=== PATIENT | female | born 1970 | race Caucasian/White ===

== ENCOUNTER 2016-12-30 12:21 | Observation (INO) ==
[2016-12-30] MEDS ORDERED: Naloxone 0.4 MG/ML INJ IVP PRN (13:21)
[2016-12-30] MEDS ORDERED: *HR* HYDROmorphone (PF) 1 MG/ML SYRINGE IVP PRN (13:26)
--- NOTE | 2016-12-30 13:35 | Event Note ---
Date of Encounter: 12/30/16 Time of Encounter: 13:33 Mrs. Padilla is a very pleasant 46 year old female who was seen and evaluated by Dr. Gill for symptomatic cholelithiasis. She was direct admitted to the hospital for supportive treatment and to perform laparoscopic cholecystectomy. See ECW history and physical. Copy placed in the patient folder at the nurses station as well as in the medical record to be scanned in.
[2016-12-30] MEDS: 0.9 % Sodium Chloride 1,000 ML IVC SCH (13:57)
[2016-12-30 13:59] LABS: Basophils % 0.4 %; Eosinophils # 0.2 K/mcL (0.0-0.6); Eosinophils % 1.6 %; Hematocrit 36.8 % (35.3-44.9); Hemoglobin 11.2 g/dL (11.5-15.4); Immature Granulocytes % 0.5 % (0-4); Lymphocytes # 1.4 K/mcL (0.6-4.6); Lymphocytes % 14.8 %; Mean Corpuscular HGB Conc 30.4 g/dL (31.6-35.5); Mean Corpuscular Hemoglobin 20.2 pg (28.0-33.3); Mean Corpuscular Volume 66.3 fL (83.0-100.0); Mean Platelet Volume 10.8 fL (9.4-12.4); Monocytes # 0.9 K/mcL (0.0-1.3); Monocytes % 9.2 %; Neutrophils # 6.9 K/mcL (1.6-8.9); Platelet Count 284 K/mcL (140-400); Red Blood Count 5.55 M/mcL (3.82-4.97); Red Cell Distribution Width 15.1 % (11.5-14.5); Segmented Neutrophils % 73.5 %
[2016-12-30 14:11] LABS: Alanine Aminotransferase 15 Units/L (0-55); Albumin 3.6 g/dL (3.5-5.0); Albumin/Globulin Ratio 0.9 (1.1-2.2); Alkaline Phosphatase 47 Units/L (38-126); Aspartate Amino Transferase 14 Units/L (5-34); BUN/Creatinine Ratio 21 (6-26); Bilirubin,Total 0.4 mg/dL (0.2-1.2); Blood Urea Nitrogen 19 mg/dL (7-20); Calcium 9.4 mg/dL (8.6-10.8); Carbon Dioxide 25 mEq/L (19-29); Chloride 105 mEq/L (98-109); Globulin 3.8 g/dL (2.4-3.5); Glucose 89 mg/dL (70-99); Osmolality,Calculated 288 (280-300); Potassium 4.2 mEq/L (3.5-4.5); Sodium 138 mEq/L (136-145); Total Protein 7.4 g/dL (6.0-8.3); eGFR For African Americans > 60 (> 60); eGFR For Non-African Americans > 60 (> 60)
[2016-12-30] MEDS: *HR* OxyCODONE/APAP 5/325 TABLET PO PRN (16:24)
[2016-12-30] MEDS: Ondansetron 4 MG/2 ML VIAL IVP PRN (21:05)
[2016-12-31] MEDS: *HR* OxyCODONE/APAP 5/325 TABLET PO PRN (04:44)
[2016-12-31] MEDS: 0.9 % Sodium Chloride 1,000 ML IVC SCH (06:13)
[2016-12-31] MEDS ORDERED: cefOXitin 2,000 MG in D5% in Water (Mini-Bag+) 100 ML IVPB ONE (08:00)
--- NOTE | 2016-12-31 12:05 | Discharge Summary ---
<Sandra Bradley - Last Filed: 12/31/16 12:03> Date of Encounter: 12/31/16 Time of Encounter: 12:03 - Discharge Diagnosis (1) Biliary colic Priority: Primary Status: Acute (2) Cholelithiasis Priority: Primary Status: Acute Qualifiers: Cholelithiasis location: gallbladder Cholecystitis presence: without cholecystitis Biliary obstruction: without biliary obstruction Qualified Code(s): K80.20 - Calculus of gallbladder without cholecystitis without obstruction - Discharge Medications Prescriptions: OxyCODONE/APAP 5/325 [Percocet 5/325 MG] 1 each PO Q6HR PRN #30 tablet PRN Reason: Moderate Pain Docusate [Colace] 100 mg PO BID #30 capsule Home Medications: Sulfamethoxazole/Trimeth DS [Bactrim Ds] 1 each PO BID #10 tablet 12/26/16 [Rx] Ondansetron HCl 4 mg PO Q3-4H PRN 12/30/16 [History] Docusate [Colace] 100 mg PO BID #30 capsule 12/31/16 [Rx] OxyCODONE/APAP 5/325 [Percocet 5/325 MG] 1 each PO Q6HR PRN #30 tablet 12/31/16 [Rx] Allergies/Adverse Reactions: Allergies No Known Allergies Allergy (Verified 12/22/16 13:07) General Surgery Exam Initial Vital Signs Temp Pulse Resp BP Pulse Ox 98.3 F 85 18 122/75 96 12/30/16 12:53 12/30/16 12:53 12/30/16 12:53 12/30/16 12:53 12/30/16 12:53 Date of admission: 12/30/16 13:21 Primary care physician: Mihir Bingham MD Discharging clinician: Roberto Bradley) Anticipated date of discharge: 12/31/16 - Patient Status Disposition: Home, Self-Care Condition: Good Functional capacity at discharge: independent ambulation Overall status at discharge: patient is progressing back to baseline - Discharge Instructions Follow Up With: Mihir Bingham MD [Primary Care Provider] - Sandra Bradley CNP [Advanced Practice Nurse] - 01/13/17 11:00 am (surgery follow-up) Additional Instructions: #1 may shower, no tub bath for 2 weeks #2 wash incisions with soap and water and pat dry daily #3 no lifting, pushing, pulling more than 15 pounds for the next 2 weeks #4 no driving until off narcotics for 24 hours and able to safely react in the car #5 may climb stairs - Diet and Activity Activity: other (See additional instructions above) - Hospital Course Hospital course: Ms. Padilla is a 46 year old female directed admitted to the hospital for symptomatic cholelithiasis and biliary colic. She was taken to the operating room for laparoscopic cholecystectomy with cholangiogram with Dr. Gill. We will begin discharge planning to home when the patient meets discharge criteria including tolerating liquids without nausea vomiting, vital signs are stable and afebrile, pain is well controlled, voiding and ambulating without difficulty. We will plan for outpatient follow-up in the next 10-14 days. - Time Spent with Patient Total time spent providing and/or coordinating discharge services: Less than 30 minutes Labs on day of discharge: Labs from last 24 hours 12/31/16 12/30/16 12/30/16 05:31 13:40 13:40 WBC RBC Hgb Hct MCV MCH MCHC RDW Plt Count MPV Immature Gran % Seg Neutrophils % Lymphocytes % Monocytes % Eosinophils % Basophils % Neutrophils # Lymphocytes # Monocytes # Eosinophils # Basophils # Sodium 138 Potassium 4.2 Chloride 105 Carbon Dioxide 25 BUN 19 Creatinine 0.90 Est GFR ( Amer) > 60 Est GFR (Non-Af Amer) > 60 BUN/Creatinine Ratio 21 Glucose 89 POC Glucose 103 H Calculated Osmolality 288 Calcium 9.4 Total Bilirubin 0.4 AST 14 ALT 15 Alkaline Phosphatase 47 Serum Total Protein 7.4 Albumin 3.6 Globulin 3.8 H Albumin/Globulin Ratio 0.9 L Serum , Qual Negative 12/30/16 13:40 WBC 9.4 RBC 5.55 H Hgb 11.2 L Hct 36.8 MCV 66.3 L MCH 20.2 L MCHC 30.4 L RDW 15.1 H Plt Count 284 MPV 10.8 Immature Gran % 0.5 Seg Neutrophils % 73.5 Lymphocytes % 14.8 Monocytes % 9.2 Eosinophils % 1.6 Basophils % 0.4 Neutrophils # 6.9 Lymphocytes # 1.4 Monocytes # 0.9 Eosinophils # 0.2 Basophils # 0.0 Sodium Potassium Chloride Carbon Dioxide BUN Creatinine Est GFR ( Amer) Est GFR (Non-Af Amer) BUN/Creatinine Ratio Glucose POC Glucose Calculated Osmolality Calcium Total Bilirubin AST ALT Alkaline Phosphatase Serum Total Protein Albumin Globulin Albumin/Globulin Ratio Serum , Qual - Attending Attestation I examined this patient and my medical decision-making was reviewed with the [employer]ER/PA/Advanced Practice Nurse/Resident Physician. I agree with the documented findings, disposition and treatment plan as described except to the extent set forth below. <Roberto Gill E - Last Filed: 12/31/16 13:44> Date of Encounter: 12/31/16 General Surgery Exam Initial Vital Signs Temp Pulse Resp BP Pulse Ox 98.3 F 85 18 122/75 96 12/30/16 12:53 12/30/16 12:53 12/30/16 12:53 12/30/16 12:53 12/30/16 12:53 Date of admission: 12/30/16 13:21 Primary care physician: Mihir Bingham MD - Hospital Course Hospital course: Ms. Padilla is a 46 year old female - Time Spent with Patient Total time spent providing and/or coordinating discharge services: Labs on day of discharge: Labs from last 24 hours 12/31/16 12/30/16 12/30/16 05:31 13:40 13:40 WBC RBC Hgb Hct MCV MCH MCHC RDW Plt Count MPV Immature Gran % Seg Neutrophils % Lymphocytes % Monocytes % Eosinophils % Basophils % Neutrophils # Lymphocytes # Monocytes # Eosinophils # Basophils # Sodium 138 Potassium 4.2 Chloride 105 Carbon Dioxide 25 BUN 19 Creatinine 0.90 Est GFR ( Amer) > 60 Est GFR (Non-Af Amer) > 60 BUN/Creatinine Ratio 21 Glucose 89 POC Glucose 103 H Calculated Osmolality 288 Calcium 9.4 Total Bilirubin 0.4 AST 14 ALT 15 Alkaline Phosphatase 47 Serum Total Protein 7.4 Albumin 3.6 Globulin 3.8 H Albumin/Globulin Ratio 0.9 L Serum , Qual Negative 12/30/16 13:40 WBC 9.4 RBC 5.55 H Hgb 11.2 L Hct 36.8 MCV 66.3 L MCH 20.2 L MCHC 30.4 L RDW 15.1 H Plt Count 284 MPV 10.8 Immature Gran % 0.5 Seg Neutrophils % 73.5 Lymphocytes % 14.8 Monocytes % 9.2 Eosinophils % 1.6 Basophils % 0.4 Neutrophils # 6.9 Lymphocytes # 1.4 Monocytes # 0.9 Eosinophils # 0.2 Basophils # 0.0 Sodium Potassium Chloride Carbon Dioxide BUN Creatinine Est GFR ( Amer) Est GFR (Non-Af Amer) BUN/Creatinine Ratio Glucose POC Glucose Calculated Osmolality Calcium Total Bilirubin AST ALT Alkaline Phosphatase Serum Total Protein Albumin Globulin Albumin/Globulin Ratio Serum , Qual - Impressions ITS Impressions Cholangiogram,Operative 12/31/16 00:00 IMPRESSION: Intraoperative images for cholecystectomy. No acute abnormality seen. D/ / Ga Trujillo MD / Ga Trujillo MD Interpreting Provider: Ga Trujillo MD
[2016-12-31] MEDS: Ondansetron 4 MG/2 ML VIAL IVP PRN (12:13)
--- NOTE | 2016-12-31 12:48 | Operative Note ---
Date of procedure: 12/31/16 Pre-op diagnosis: Biliary dyskinesia Post-op diagnosis: same Procedure: Laparoscopic cholecystectomy with cholangiogram Anesthesia: FRANCOIS Surgeon: Roberto Gill Estimated blood loss (cc): 5 Specimen: gb Condition: stable Disposition: same day Procedure in Detail: After informed consent this patient was taken the operating room placed supine position. After adequate sedation anesthesia the abdomen was prepped and draped. A proper timeout was performed. Two towel clamps are placed at the umbilicus and a Veres needle was inserted into the abdomen. A 5 mm incision was made at the umbilicus. A 12 mm incision was made in the subxiphoid region. Two 5 mm incisions were made in the right upper quadrant that were 4 finger breadths and 6 finger breadths below the costal margin. The gallbladder was identified, retracted anteriorly and cephalad, and the infundibulum was skeletonized. The cystic duct was easily identified and was dissected free. A ductotomy was created in the cystic duct. A taut catheter was placed within the cystic duct and clipped. A cholangiogram was performed. Contrast filled the cystic duct, common hepatic duct, hepatic radicles, and the distal common bile duct. There was flow of contrast into the duodenum. Once this was confirmed the clippers removed, the taut catheter was removed as well, and the cystic duct was clipped distally. The cystic duct was then transected with scissors. The gallbladder was resected off the liver surface. There was excellent hemostasis. The gallbladder was then retrieved through the 12 mm cannula site. At this point the abdomen was suctioned dry and the pneumoperitoneum was then evacuated. All ports were removed. The 12 mm cannula site was closed with an 0 Vicryl suture in [id number] fashion. The skin was closed with 4-0 Vicryl suture. Dermabond was placed as well. All instrument counts and needle counts are correct in the operation. She tolerated the procedure well and was transferred to the PACU in stable condition.
[2016-12-31] MEDS ORDERED: Scopolamine Patch 1.5 MG PATCH.TD72 ONE (12:52)
--- NOTE | 2016-12-31 12:57 | Anesthesia Evaluation PreOp ---
Date of Encounter: 12/31/16 Time of Encounter: 12:56 - Past History Planned Operation: Lap cholecystectomy Cardiac History: Denies any Significant Hx Pulmonary History: Denies Any Significant HX EXAMINATION GRADER History: Denies Any Significant HX Other Medical History: Denies Any Significant HX Anesthesia History: Problems (nausea) Alcohol Use: none Drug use: none Medications and Allergies Sulfamethoxazole/Trimeth DS [Bactrim Ds] 1 each PO BID #10 tablet 12/26/16 [Rx] Ondansetron HCl 4 mg PO Q3-4H PRN 12/30/16 [History] Docusate [Colace] 100 mg PO BID #30 capsule 12/31/16 [Rx] OxyCODONE/APAP 5/325 [Percocet 5/325 MG] 1 each PO Q6HR PRN #30 tablet 12/31/16 [Rx] Allergies No Known Allergies Allergy (Verified 12/22/16 13:07) - Meds/Allergy Pre-op Review Medications Reviewed: Yes Allergies Reviewed: Yes Beta Blockers on Current Med List: No Anesthesia Results - Labs 12/30/16 13:40 12/30/16 13:40 Anesthesia Exam Last Vital Signs Temp 98.1 F 12/31/16 12:04 Pulse 79 12/31/16 12:04 Resp 17 12/31/16 12:04 BP 123/71 12/31/16 12:04 Pulse Ox 98 12/31/16 12:04 Weight: 72 kg NPO (# of Hours): >> 8 hrs - HEENT Pupil (Motor): Pupils equal, EOMI Mallampati: II Teeth: Normal Oral Opening: Greater than 3 - EXAMINATION GRADER LOC: Oriented EXAMINATION GRADER Motor: Normal RUE, Normal LUE, Normal RLE, Normal LLE, Normal Face EXAMINATION GRADER Sensory: Normal: RUE, LUE, RLE, LLE, Face - Cardiac Rhythm: Regular Murmur: None - Pulmonary Breath Sounds: bilateral Clear Respiratory Effort: Symmetrical Anesthesia Assess/Plan ASA Score: 1 Modified [place] Scale for Level of Consciousness: Cooperative, oriented, and tranquil Anesthetic Plan: General Monitoring Plan: Standard Monitors Recovery Plan: PACU
[2016-12-31] MEDS ORDERED: Esmolol 100 MG/10 ML VIAL IVP ONE (13:33)
[2016-12-31] MEDS ORDERED: *HR* Succinylcholine 200 MG/10 ML VIAL IVP ONE (13:33)
[2016-12-31] MEDS ORDERED: *HR* Midazolam HCl 2 MG/2 ML VIAL ONE (13:33)
[2016-12-31] MEDS ORDERED: *HR* Propofol 200 MG/20 ML VIAL IVP ONE (13:33)
[2016-12-31] MEDS ORDERED: *HR* FentaNYL (PF) 100 MCG/2 ML VIAL ONE (13:33)
[2016-12-31] MEDS ORDERED: Lidocaine -MPF 2% 2 ML VIAL ONE (13:33)
[2016-12-31] MEDS ORDERED: Dexamethasone 4 MG/ML VIAL ONE (13:33)
[2016-12-31] MEDS ORDERED: *HR* Rocuronium Bromide 50 MG/5 ML VIAL ONE (13:33)
[2016-12-31] MEDS ORDERED: Ondansetron 4 MG/2 ML VIAL ONE (13:33)
[2016-12-31] MEDS ORDERED: *HR* Promethazine 25 MG/ML VIAL IVP PRN ×2 (13:35→13:49)
[2016-12-31] MEDS ORDERED: *HR* HYDROmorphone (PF) 1 MG/ML SYRINGE IVP PRN ×2 (13:35→13:49)
[2016-12-31] MEDS ORDERED: Ondansetron 4 MG/2 ML VIAL IVP PRN ×3 (13:35→13:49)
[2016-12-31] MEDS ORDERED: Ketorolac 30 MG/ML VIAL ONE (13:43)
[2016-12-31] MEDS ORDERED: Neostigmine Methylsulfate 3 MG/3 ML SYRINGE ONE (13:45)
[2016-12-31] MEDS ORDERED: *HR* OxyCODONE/APAP 5/325 TABLET PO PRN (13:49)
[2016-12-31] MEDS ORDERED: 0.9 % Sodium Chloride 1,000 ML IVC SCH (13:49)
[2016-12-31] MEDS ORDERED: Naloxone 0.4 MG/ML INJ IVP PRN (13:49)
[2016-12-31] MEDS: *HR* HYDROmorphone (PF) 1 MG/ML SYRINGE IVP PRN ×2 (14:05→14:20)
--- NOTE | 2016-12-31 14:32 | Anesthesia Evaluation Post Op ---
Date of Encounter: 12/31/16 Time of Encounter: 14:32 - Vital Signs Vital Signs: Last Vital Signs Temp 98.2 F 12/31/16 13:57 Pulse 75 12/31/16 14:17 Resp 16 12/31/16 14:17 BP 150/82 12/31/16 14:17 Pulse Ox 98 12/31/16 14:17 - Lungs Lungs: Clear Ascult./Percussion - Airway Airway: Non-obstructed - Cardiovascular Regular Rate - Mental Status Mental Status: Alert & Oriented, Answers Appropriately - Pain Pain Scale: 2 - Nausea Vomiting Nausea Vomiting: Responds to treatment with IV Meds - Hydration Hydration: Ice chips - Discharge PostOp Status: Transfer Patient to floor
[2016-12-31] MEDS ORDERED: 0.9 % Sodium Chloride 500 ML ONE (14:44)
[2016-12-31 20:03] VITALS: BP 122/69
== END 2016-12-31 20:24 | disposition home or self-care (01) ==
LOC: SAMDAY 12:21 → 3ANU 12:21
PROVIDERS: ADMIT Nurse Practitioner Family; ATTEND Surgery